=== PATIENT | male | born 1945 | race Caucasian/White ===

== ENCOUNTER → 2020-10-24 09:35 | Outpatient (CLI) | payer MEDICARE, OTHER, SELFPAY | PROVIDERS: Visit Provider Ophthalmology | DX: Z01.812 Encounter for preprocedural laboratory examination (principal); Z20.822 Contact with and (suspected) exposure to COVID-19 | CPT/HCPCS: U0003 ==

== ENCOUNTER 2020-10-25 07:02 | Day surgery (SDC) | payer MEDICARE, OTHER, SELFPAY ==
[2020-10-25] VITALS (7 sets, daily range): BP systolic 131–157; BP diastolic 62–74; PULSE 52–60; RESP 16; TEMP 36.1–36.2; O2SAT 98–100; BMI 27.6
[2020-10-25 07:43] LABS: POC Glucose,Bedside 132 (70-110)
== END 2020-10-25 09:02 | disposition home or self-care (01) ==
LOC: OR 07:05
PROVIDERS: PCP Pediatrics; Visit Provider Ophthalmology
DX: H25.813 Combined forms of age-related cataract, bilateral (principal); H02.831 Dermatochalasis of right upper eyelid; H02.834 Dermatochalasis of left upper eyelid; E11.9 Type 2 diabetes mellitus without complications; Z79.899 Other long term (current) drug therapy; I10 Essential (primary) hypertension; E78.5 Hyperlipidemia, unspecified; Z88.8 Allergy status to other drugs, medicaments and biological substances
CPT/HCPCS: 66982; 82962; V2632

== ENCOUNTER → 2020-11-07 10:22 | Outpatient (CLI) | payer MEDICARE, OTHER, SELFPAY | PROVIDERS: Visit Provider Ophthalmology | DX: Z01.812 Encounter for preprocedural laboratory examination (principal); Z20.822 Contact with and (suspected) exposure to COVID-19 | CPT/HCPCS: U0003 ==

== ENCOUNTER 2020-11-08 07:12 | Day surgery (SDC) | payer MEDICARE, OTHER, SELFPAY ==
[2020-11-07 13:17] VITALS: BMI 27.2
[2020-11-08] VITALS (7 sets, daily range): BP systolic 128–144; BP diastolic 62–83; PULSE 62–69; RESP 16–18; TEMP 36.7–36.8; O2SAT 95–99
[2020-11-08 07:44] LABS: POC Glucose,Bedside 142 (70-110)
== END 2020-11-08 09:06 | disposition home or self-care (01) ==
LOC: OR 07:14
PROVIDERS: PCP Pediatrics; Visit Provider Ophthalmology
DX: H25.813 Combined forms of age-related cataract, bilateral (principal); H02.831 Dermatochalasis of right upper eyelid; H02.834 Dermatochalasis of left upper eyelid; I10 Essential (primary) hypertension; Z88.8 Allergy status to other drugs, medicaments and biological substances; Z79.82 Long term (current) use of aspirin; Z79.899 Other long term (current) drug therapy
CPT/HCPCS: 66982; 82962; V2632

== ENCOUNTER → 2022-04-23 11:10 | Outpatient (CLI) | payer MEDICARE, OTHER, SELFPAY ==
[2022-04-23 13:01] LABS: Ferritin 121 ng/ml (17.9-464)
== END ==
PROVIDERS: PCP Pediatrics; Visit Provider Nurse Practitioner Family
DX: E11.69 Type 2 diabetes mellitus with other specified complication (principal)
CPT/HCPCS: 36415; 82728